=== PATIENT | male | born 1990 | race Caucasian/White ===

== ENCOUNTER 2025-01-24 10:40 | Emergency (ER) | payer BC, SELFPAY ==
[2025-01-24 10:50] VITALS: BP 110/82
--- NOTE | 2025-01-24 12:24 | ED.GENMED ---
History of Present Illness
<Ann Marie Shelton PA-C - Last Filed: 01/24/25 14:45>
General
Chief Complaint: Anal/Rectal Problem
Source: patient
Exam Limitations: none
Time Seen by Provider: 01/24/25 12:02
History of Present Illness
History of Present Illness:
34yoM with no significant past medical history presenting for evaluation of rectal pain and swelling x 8 days. Patient reports a lump near his rectum that has been gradually enlarging and becoming more painful over the past few days. He was
treating himself at home with OTC remedies including witch josé antonio pads without relief. He was seen at a [facility] as well as urgent care and was diagnosed with a hemorrhoid. He was prescribed hydrocortisone 2.5% cream yesterday which has
not provided any relief. He denies any constipation, rectal bleeding, or fevers. 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
Past History
<Ann Marie Shelton PA-C - Last Filed: 01/24/25 14:45>
Past History
ED Past Medical History: None
ED Past Surgical History: None
Social History
Tobacco: Smoker
Alcohol: Occasional
Drug: Marijuana
Personal: Single
Living: with family
Phy Exam
<Ann Marie Shelton PA-C - Last Filed: 01/24/25 14:45>
General Physical Exam
General Presentation: well appearing and no apparent distress
General Skin: warm and dry
General Habitus: normal
General Mental: alert
ENT Exam
ENT Exam: normocephalic
Pulmonary Exam
Pulmonary Exam: no respiratory distress
Gastrointestinal Exam
Rectal Exam: other (Large fluctuant area of swelling noted to perineum inferior to rectum that is tender to touch. No surrounding cellulitis or crepitus. )
Neurological Exam
Neurological Exam: alert
Mariya Coma Scale
Eye Opening: Spontaneous
Verbal Response: Oriented
Motor Response: Obeys Commands
GCS Total Score: 15
Skin Exam
Skin Exam: warm/dry
Psychiatric Exam
Psychiatric Exam: normal mood/affect
Course
<Ann Marie Shelton PA-C - Last Filed: 01/24/25 14:45>
Orders/Labs/Results
Orders:
Orders
01/24/25 12:51
Amoxicillin 875 mg/Clav 125 mg [Augmentin 875 mg/125 mg] 1 tablet PO NOW STA
Vital Signs
Initial and Last Documented VS:
Initial Vital Signs
Temp Pulse Resp BP Pulse Ox
98.4 F 118 20 110/82 96
01/24/25 10:50 01/24/25 10:50 01/24/25 10:50 01/24/25 10:50 01/24/25 10:50
Last Documented Vital Signs
Temp Pulse Resp BP Pulse Ox
98.4 F 118 20 110/82 96
01/24/25 10:50 01/24/25 10:50 01/24/25 10:50 01/24/25 10:50 01/24/25 12:26
<Judd Stokes, - Last Filed: 01/24/25 12:59>
Orders/Labs/Results
Orders:
Orders
01/24/25 12:51
Amoxicillin 875 mg/Clav 125 mg [Augmentin 875 mg/125 mg] 1 tablet PO NOW STA
Vital Signs
Initial and Last Documented VS:
Initial Vital Signs
Temp Pulse Resp BP Pulse Ox
98.4 F 118 20 110/82 96
01/24/25 10:50 01/24/25 10:50 01/24/25 10:50 01/24/25 10:50 01/24/25 10:50
Last Documented Vital Signs
Temp Pulse Resp BP Pulse Ox
98.4 F 118 20 110/82 96
01/24/25 10:50 01/24/25 10:50 01/24/25 10:50 01/24/25 10:50 01/24/25 12:26
Procedures
<Ann Marie Shelton PA-C - Last Filed: 01/24/25 14:45>
Incision/Drainage/Joint Aspiration
Perineal :
Anethesia: 1% Lidocaine with Epi
Preparation: cleaned with Betadine
Type of procedure: incise and drain
Nature of site: abscess
Description of abscess: greater than 3cm
Loculations broken up: Yes
How much fluid was obtained?: large amount
Fluid description: purulent
Treatment: left open for drainage and antibiotics started
<Ann Marie Shelton PA-C - Last Filed: 01/24/25 14:45>
MDM/Problems Addressed
Differential Diagnosis Includes:
34yoM here with rectal pain/swelling x 8 days. Seen at urgent care yesterday and diagnosed with hemorrhoid. Using topical steroids without relief. On exam, there is a large area of fluctuance in the perineal area inferior to the rectum. Exam
concerning for possible abscess vs. thrombosed hemorrhoid
I&D performed with copious amounts of purulent drainage. Patient feeling significantly improved after drainage and is now able to sit comfortably. He was advised to stop using hydrocortisone. He was started on a course of Augmentin and advised to
use warm compresses/sitz baths. Advised f/u with colorectal surgery and ED return precautions reviewed. Patient discharged in stable condition.
<Ann Marie Shelton PA-C - Last Filed: 01/24/25 14:45>
*Pulse Oximetry
SaO2: 96
Oxygen Mode of Delivery: Room air
Patient hypoxic: no
*Critical Care Note
Total Time (30-74mins, 75-104mins- exclusive of procedures): Not Applicable
ED Attending Note
<Ann Marie Shelton PA-C - Last Filed: 01/24/25 14:45>
-
Portions of this chart may have been created with voice recognition software.� Occasional wrong word or��sound alike� substitutions may have occurred due to the inherent limitations of voice recognition software.
<Judd Stokes DO - Last Filed: 01/24/25 12:59>
ED Attending Note
Patient seen and examined by attending physician: Yes
ED Attending Note:
I have reviewed and agree with history treatment plan by Ann Marie Shelton PA-C. My exam revealed fluctuant mass at perianal area. Incision and drainage revealed large abscess. Improved. Will discharge, Augmentin and follow-up with colorectal
surgeon.
Discharge Plan
Departure
Patient Disposition: Home (Routine Discharge)
Date of Disposition: 01/24/25
Time of Disposition: 12:55
Patient with high blood pressure during this ER visit?: No
Discharge Problem:
Perirectal abscess
Instructions: Anal abscess and fistula (DC)
Prescriptions:
New
amoxicillin-pot clavulanate 875-125 mg tablet
1 tab PO BID Qty: 13 0RF
No Action
dicyclomine 20 MG tablet
20 mg PO QIDPRN PRN (Reason: abdominal pain) Qty: 12 0RF
ondansetron 4 MG tablet,disintegrating
4 mg PO TIDPRN PRN (Reason: nausea/vomiting) Qty: 12 0RF
Referrals:
Mikhail Motley MD [Active, ColoRectal]
Jose Hyatt DO [Family Provider, Family Practice]
Activity Restrictions/Additional Instructions:
Take antibiotics as prescribed. Apply warm compress to affected area. You may continue doing sitz bath's for your discomfort.
Please call Sunday to schedule a follow-up appointment with colorectal surgery. Return to the ER with any worsening swelling or fevers.
Interventions
Interventions:
*General Assessment Last Done: 01/24/25 10:50
*Neglect/Abuse Screening Last Done: 01/24/25 10:50
*ED COVID-19 Vaccine History Last Done: 01/24/25 12:00
*ED Influenza Vaccine History Last Done: 01/24/25 12:00
[facility] Fall Risk Assessment Tool Last Done: 01/24/25 12:00
*Risk Screen - Suicide (C-SSRS) Last Done: 01/24/25 13:26
*Nursing Disposition Last Done: 01/24/25 13:26
KX-Azflfm-Wlmnvlmeau Assessment Last Done: 01/24/25 13:26
ED-Skin Assessment Last Done: 01/24/25 12:00
Discharge Date and Time
Discharge Date/Time: 01/24/25 13:27
Print Language: MONTSERRATIAN
[2025-01-24] MEDS: AUGMENTIN 875 MG/125 MG 1 TABLET PO (13:22)
== END 2025-01-24 13:27 | disposition home or self-care (01) ==
LOC: EMR 10:40
PROVIDERS: EMERGENCY PHYSICIAN Emergency Medicine; FAMILY PHYSICIAN Family Medicine
DX: K61.1 Rectal abscess (principal); F17.200 Nicotine dependence, unspecified, uncomplicated
CPT/HCPCS: 99283; 10060

== ENCOUNTER 2025-02-04 06:24 | Emergency (ER) | payer BC, SELFPAY ==
[2025-02-04 06:33] VITALS: BP 163/95
[2025-02-04 07:05] LABS: Hematocrit 49.3 % (39.0-52.0); Hemoglobin 16.5 g/dL (13.0-18.0); Mean Corp Hgb Conc. 33.5 g/dL (33.0-37.0); Mean Corpuscular Volume 85.6 fL (80.0-94.0); Nucleated Red Blood Cells % 0 % (-); Platelet Count 582 10^3/uL (130-400); Red Cell Dist. Width 12.9 % (11.5-14.5)
[2025-02-04 07:32] LABS: ALT (SGPT) 29 U/L (0-50); AST (SGOT) 28 U/L (17-59); Albumin 5.0 g/dl (3.5-5.0); Alkaline Phosphatase 71 U/L (38-126); Blood Urea Nitrogen 19 mg/dl (9-20); Calcium 10.2 mg/dl (8.4-10.2); Carbon Dioxide 29 mmol/L (22-30); Chloride 98 mmol/L (98-107); Glucose 117 mg/dl (70-99); Lipase 105 U/L (23-300); Potassium 4.7 mmol/L (3.5-5.1); Sodium 138 mmol/L (135-145); Total Protein 8.1 g/dl (6.3-8.2); eGFR > 60.00
--- NOTE | 2025-02-04 08:51 | EDRN ---
Dr. Murillo in to see pt.
[2025-02-04 08:59] VITALS: BMI 21.9
[2025-02-04] MEDS: NSS 1000 IV (09:08)
[2025-02-04] MEDS: TORADOL 15 MG IV (09:14)
[2025-02-04] MEDS: PROTONIX IV 40 MG IV (09:14)
[2025-02-04] MEDS: ZOFRAN 4 MG IV (09:14)
[2025-02-04 09:20] VITALS: BP 159/92
--- NOTE | 2025-02-04 09:41 | ED.GENMED ---
History of Present Illness
General
Chief Complaint: Abdominal Symptoms
Source: patient
Exam Limitations: none
Time Seen by Provider: 02/04/25 08:36
Nursing documentation reviewed up to this point in time: agreed with
History of Present Illness
History of Present Illness:
Patient presents to ED secondary to recurrent abdominal pain associated with intermittent vomiting episodes over the past 2 days. Patient states that his symptoms started shortly after having a doughnut. Patient unfortunate has had number of
similar symptoms in the past, including couple months ago, when he was treated symptomatically with medications with success. Patient also has had history of colitis on number of occasions in the past. Of note, patient was seen in ED 1 week ago
where he received I&D for perirectal abscess. Since then, patient has had follow-up with colorectal surgeon, Dr. Motley, who informed the patient that he is healing well. Abdominal pain described as crampy, nonradiating, without any alleviating or
exacerbate factors. Denies recent change in diet. Denies recent trauma. Denies recent illness. Denies change in bowel habits. Denies family history of colon problems. Denies weight loss. Patient has not been evaluated by GI physician in the
past. However, patient has received a number of imaging studies, including CT scan recently.
Past History
Past History
ED Past Medical History: None
ED Past Surgical History: None
Social History
Tobacco: Smoker
Alcohol: Occasional
Drug: Marijuana
Personal: Single
Living: with family
Review of Systems
Review of Systems
Allergies reviewed?: Yes
All Other Systems: ROS reviewed and negative except as documented in HPI and ROS
Constitutional: Reports no symptoms; Denies fever
Respiratory: Reports no symptoms
Cardiac: Reports no symptoms
ABD/GI: Reports abdominal pain, nausea and vomiting; Denies diarrhea
Musculoskeletal: Reports no symptoms
Skin: Reports no symptoms
Neurological: Reports no symptoms
Phy Exam
Physical Exam
Physical Exam:
Physical Exam
General: no apparent distress, not acutely ill. afebrile
Head: nc/at. eomi
Neck: supple. normal range of motion
Heart: s1/s2 regular rate and rhythm
Lungs: no acute respiratory distress. clear bilaterally
Abdomen: normal bowel sounds. not tender. no distention
Neuro: alert and oriented x 3. no focal neurological deficits
Skin: no rash
Psychiatric: well kept. interactive and cooperative
Extremities: no edema. no calf tenderness.
Course
Orders/Labs/Results
Orders:
Orders
02/04/25 06:39
IV Insert/Care/Rem.- Treatment PRN
Straight cath- Treatment ONCE
02/04/25 06:46
Complete Blood Count/With Diff Urgent
Comprehensive Metabolic Panel Urgent
Lipase Urgent
Urinalysis Reflex To Culture Urgent
Date Specimen was Collected: 02/04/25
Time Specimen was Collected: 06:40
Urine Microscopic Reflex Cult Urgent
02/04/25 08:52
0.9% Sodium Chloride 1000 ml [Nss] 1,000 ml IV BOLUS
Ketorolac [Toradol] 15 mg IV NOW STA
Ondansetron Injectable [Zofran] 4 mg IV NOW STA
Pantoprazole [Protonix IV] 40 mg IV NOW STA
Abnormal Lab Results
02/04/25
06:46
WBC 15.7 H 10^3/uL
(4.8-10.8)
Plt Count 582 H 10^3/uL
(130-400)
Abs Immat Gran (auto) 0.1 H 10^3/uL
(0-0.05)
Absolute Neuts (auto) 11.2 H 10^3/uL
(1.4-6.5)
Absolute Monos (auto) 1.1 H 10^3/uL
(0.1-0.6)
Immature Gran % 0.8 H %
(0-0.5)
Lymphocytes % 19.5 L %
(20.5-51.1)
Glucose 117 H mg/dl
(70-99)
Urine Ketones 1+ A
(Negative)
Urine Bacteria (Reflex) Few A
(Negative)
Urine Albumin (Reflex) 1+ A
(Neg - Trace)
02/04/25 06:46
02/04/25 06:46
Vital Signs
Initial and Last Documented VS:
Initial Vital Signs
Temp Pulse Resp BP Pulse Ox
98.5 F 52 20 163/95 99
02/04/25 06:33 02/04/25 06:33 02/04/25 06:33 02/04/25 06:33 02/04/25 06:33
Last Documented Vital Signs
Temp Pulse Resp BP Pulse Ox
98.5 F 66 16 144/79 98
02/04/25 06:33 02/04/25 11:00 02/04/25 11:00 02/04/25 11:00 02/04/25 11:00
MDM/Problems Addressed
MDM/Problems Addressed:
Patient reports significant improvement symptoms after treatment. Repeat abdominal exam: Soft and nontender. Patient otherwise remains afebrile, hemodynamically stable, nontoxic-appearing. Mild leukocytosis noted on blood work, likely reactive,
doubt acute abdominal pathology at this time. As such, any imaging studies will be deferred. However, in light of patient's recurrent symptoms, patient will be referred to GI for an outpatient follow-up.
*Pulse Oximetry
SaO2: 99
Oxygen Mode of Delivery: Room air
Patient hypoxic: no
*Critical Care Note
Total Time (30-74mins, 75-104mins- exclusive of procedures): Not Applicable
ED Attending Note
-
Portions of this chart may have been created with voice recognition software.� Occasional wrong word or��sound alike� substitutions may have occurred due to the inherent limitations of voice recognition software.
Discharge Plan
Departure
Patient Disposition: Home (Routine Discharge)
Date of Disposition: 02/04/25
Time of Disposition: 11:37
Patient with high blood pressure during this ER visit?: Yes
Condition: Fair
Discharge Problem:
Abdominal pain
Instructions: D Lo Diet, Abdominal Pain
Prescriptions:
New
sucralfate 100 mg/mL suspension
10 ml PO ACHS Qty: 400 0RF
No Action
dicyclomine 20 MG tablet
20 mg PO QIDPRN PRN (Reason: abdominal pain) Qty: 12 0RF
ondansetron 4 MG tablet,disintegrating
4 mg PO TIDPRN PRN (Reason: nausea/vomiting) Qty: 12 0RF
amoxicillin-pot clavulanate 875-125 mg tablet
1 tab PO BID Qty: 13 0RF
Referrals:
Jarrett Fernandez MD [Active, Gastroenterology]
Jose Hyatt DO [Family Provider, Family Practice]
Activity Restrictions/Additional Instructions:
As discussed, please follow-up with referred GI physician for further evaluation and treatment. Please consider return to ED with worsening symptoms, i.e. fever/worsening pain/vomiting. Your prescription has been sent electronically to [facility]
pharmacy in [place]. Please also start taking over the counter PPI medication, ie. prilosec, pepcid, nexium, protonix
Interventions
Interventions:
*General Assessment Last Done: 02/04/25 06:33
*Neglect/Abuse Screening Last Done: 02/04/25 06:33
*ED COVID-19 Vaccine History Last Done: 02/04/25 06:33
*ED Influenza Vaccine History Last Done: 02/04/25 06:33
[facility] Fall Risk Assessment Tool Last Done: 02/04/25 08:59
*Risk Screen - Suicide (C-SSRS) Last Done: 02/04/25 06:33
*Nursing Disposition Last Done: 02/04/25 11:51
WM-Jpgkyu-Zqkegxcwte Assessment Last Done: 02/04/25 09:20
Discharge Date and Time
Discharge Date/Time: 02/04/25 11:53
Print Language: MOROCCAN
[2025-02-04 09:53] LABS: Urine Character Slightly Cloudy (Clear)
[2025-02-04 09:59] LABS: Urine Red Blood Cell 0-2 /HPF (0-2); Urine Squamous Cell 0-2 /LPF (Few)
[2025-02-04 10:00] VITALS: BP 156/90
--- NOTE | 2025-02-04 10:15 | EDRN ---
Pt states no nausea at this time and pain is not 2/10 in mid abd.
[2025-02-04 11:00] VITALS: BP 144/79
--- NOTE | 2025-02-04 11:30 | EDRN ---
Dr. Murillo in to see pt.
== END 2025-02-04 11:53 | disposition home or self-care (01) ==
LOC: EMR 06:24
PROVIDERS: Student in an Organized Health Care Education/Training Program; EMERGENCY PHYSICIAN Emergency Medicine; FAMILY PHYSICIAN Family Medicine
DX: R10.9 Unspecified abdominal pain (principal); D72.829 Elevated white blood cell count, unspecified; F17.200 Nicotine dependence, unspecified, uncomplicated
CPT/HCPCS: 99284; 96374; 96375 ×2; 96361; 80053; 81003; 81015; 83690; 85025